=== PATIENT | male | born 1980 | race Caucasian/White ===

== ENCOUNTER → 2018-06-03 20:34 | Outpatient (CLI) | payer OTHER, SELFPAY ==
--- NOTE | 2018-06-03 20:41 | DI.MRI.S_ITS ---
PROCEDURE: MR WRIST RT WO CON INDICATIONS: RIGHT WRIST PAIN TECHNIQUE: Noncontrast coronal proton density fast spin echo and T2 fast spin echo with fat saturation; coronal 3-D gradient echo, axial T1 spin echo and T2 fast spin echo with fat saturation, sagittal T1 spin echo through the wrist. COMPARISON: None. FINDINGS: Image quality: Excellent. Bones and cartilage: The carpal bones are normally aligned. No bone marrow contusions or fractures. 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 No evidence for avascular necrosis. Overlying cartilage surfaces appear normal. Carpal ligaments: The scapholunate and lunotriquetral ligaments appear intact. In the absence of intra-articular contrast, the extrinsic carpal ligaments are not well identified. On sagittal images, the pisohamate ligament appears intact. Triangular fibrocartilage complex: The triangular fibrocartilage appears intact. The adjacent meniscal homolog appears normal in the absence of intra-articular contrast. The extensor carpi ulnaris tendon is normal in location and morphology. Tendons and soft tissues: The carpal tunnel structures appear normal, including the median nerve. The ulnar nerve appears normal within Guyon's canal. Mild increased signal noted in the second extensor tendon compartment which could represent artifact versus mild tendinosis. No soft tissue ganglion cysts. IMPRESSION: 1. Mild increased signal in the second extensor tendon compartment osteoarthritic mild tendinosis. 2. No ligament tear. 3. No joint effusion. Dictated by: Sonia Scherer MD, PhD on 06/04/2018 at 10:44 Approved by: Sonia Scherer MD, PhD on 06/04/2018 at 22:04
== END ==
PROVIDERS: Visit Provider Family Medicine
DX: M25.531 Pain in right wrist (principal)
CPT/HCPCS: 73221